=== PATIENT | male | born 1980 | race American Indian/Alaskan Native ===

== ENCOUNTER 2021-03-15 06:59 | Emergency (ER) | payer SELFPAY ==
[2021-03-15] MEDS ORDERED: ALBUTEROL 2.5 MG/3 ML NEBU IH ONE ×2 (07:52→08:10)
[2021-03-15] MEDS ORDERED: IPRATROPIUM 0.02% NEBU 2.5 ML IH ONE ×2 (07:52→08:10)
--- NOTE | 2021-03-15 08:42 | XRay Report ---
CHEST 2 VIEWS INDICATION / CLINICAL INFORMATION: cough. COMPARISON: None available. FINDINGS: SUPPORT DEVICES: None. HEART / MEDIASTINUM: No significant abnormality. LUNGS / PLEURA: No significant pulmonary or pleural abnormality. No pneumothorax. ADDITIONAL FINDINGS: No significant additional findings. IMPRESSION: 1. No acute findings. Signer Name: Rao Gunn MD Signed: 03/15/2021 8:37 AM Workstation Name: [id number]
--- NOTE | 2021-03-15 08:50 | Emergency Department Report ---
ED General Adult HPI - General Chief complaint: Adult Asthma Stated complaint: SOB/COUGH Time Seen by Provider: 03/15/21 07:55 Source: patient Mode of arrival: Ambulatory Limitations: No Limitations - History of Present Illness Initial comments: 40-year-old -[place] male patient presents with complaints of wheezing x2 days. He reports a history of asthma and states he has been out of his rescue inhaler for some time. He denies any cough, congestion, shortness of breath, chest pain, loss of taste/smell, or fever/chills/sweats. No other past medical history per patient or recent known sick contacts. -: Sudden - Related Data Previous Rx's Medication Instructions Recorded Last Taken Type ALBUTEROL NEB's [Proventil 0.083% 2.5 mg IH TID PRN #1 box 03/15/21 Unknown Rx NEBS] Albuterol Mdi (or & Nicu Only) 2 puff IH QID PRN #8.5 gram 03/15/21 Unknown Rx [ProAir HFA Inhaler] Prednisone [predniSONE 10 mg 10 mg PO .TAPER #1 tab.ds.pk 03/15/21 Unknown Rx (6-Day Pack, 21 Tabs)] ED Review of Systems ROS: Stated complaint: SOB/COUGH Other details as noted in HPI Constitutional: denies: chills, diaphoresis, fever, malaise Respiratory: wheezing. denies: cough, shortness of breath Cardiovascular: denies: chest pain Gastrointestinal: denies: abdominal pain Neurological: denies: headache ED Past Medical Hx - Past Medical History Previous Medical History?: Yes Hx Asthma: Yes - Surgical History Past Surgical History?: No - Social History Smoking Status: Former Smoker Substance Use Type: None - Medications Home Medications: Home Medications Medication Instructions Recorded Confirmed Last Taken Type ALBUTEROL NEB's [Proventil 0.083% 2.5 mg IH TID PRN #1 box 03/15/21 Unknown Rx NEBS] Albuterol Mdi (or & Nicu Only) 2 puff IH QID PRN #8.5 gram 03/15/21 Unknown Rx [ProAir HFA Inhaler] Prednisone [predniSONE 10 mg 10 mg PO .TAPER #1 tab.ds.pk 03/15/21 Unknown Rx (6-Day Pack, 21 Tabs)] ED Physical Exam - General Limitations: No Limitations General appearance: alert, in no apparent distress - Head Head exam: Present: atraumatic - Eye Eye exam: Present: normal appearance - ENT ENT exam: Present: normal exam - Neck Neck exam: Present: normal inspection - Respiratory Respiratory exam: Present: wheezes (Diffuse, bilateral). Absent: respiratory distress, rales, rhonchi, stridor, chest wall tenderness - Cardiovascular Cardiovascular Exam: Present: regular rate - Neurological Exam Neurological exam: Present: alert, oriented X3 - Psychiatric Psychiatric exam: Present: normal affect, normal mood - Skin Skin exam: Present: warm, dry, intact, normal color. Absent: rash, cyanosis, diaphoretic ED Course Vital Signs 03/15/21 07:13 Temperature 97.6 F Pulse Rate 70 Respiratory 15 Rate Blood Pressure 124/89 O2 Sat by Pulse 99 Oximetry ED Medical Decision Making - Medical Decision Making 40-year-old -[place] male patient presents with complaints of wheezing x2 days. He reports a history of asthma and states he has been out of his rescue inhaler for some time. He denies any cough, congestion, shortness of breath, chest pain, loss of taste/smell, or fever/chills/sweats. No other past medical history per patient or recent known sick contacts. Wheezing noted on exam. Patient given DuoNeb here in ED. Lungs are now clear to auscultation bilaterally post neb treatment. He states his symptoms have resolved and he is feeling well. His vitals are within normal limits and he is stable for discharge home. Strict return precautions were discussed in detail patient verbalizes understanding. Patient is to follow-up with his PCP in 3 to 5 days. Critical care attestation.: If time is entered above; I have spent that time in minutes in the direct care of this critically ill patient, excluding procedure time. ED Disposition Clinical Impression: Asthma exacerbation Disposition: DC-01 TO HOME OR SELFCARE Is pt being admited?: No Condition: Stable Instructions: Asthma, Adult Prescriptions: Prednisone [predniSONE 10 mg (6-Day Pack, 21 Tabs)] 10 mg PO .TAPER #1 tab.ds.pk Albuterol Mdi (or & Nicu Only) [ProAir HFA Inhaler] 2 puff IH QID PRN #8.5 gram PRN Reason: Shortness Of Breath ALBUTEROL NEB's [Proventil 0.083% NEBS] 2.5 mg IH TID PRN #1 box PRN Reason: Wheezing Referrals: [facility] [Provider Group] - 3-5 Days Forms: Work/School Release Form(ED)
[2021-03-15 10:05] VITALS: BP 128/76
== END 2021-03-15 10:04 | disposition home or self-care (01) ==
LOC: ED 06:59
DX: J45.901 Unspecified asthma with (acute) exacerbation (principal); Z79.899 Other long term (current) drug therapy; Z87.891 Personal history of nicotine dependence
CPT/HCPCS: 71046; 94644